=== PATIENT | male | born 1990 | race African-American/Black ===

== ENCOUNTER → 2018-02-24 | Outpatient (REF) | payer OTHER ==
[2018-02-25 08:06] LABS: HCG SERUM TUMOR MARKER QUANT < 1 mIU/mL (0-3)
[2018-02-25 13:22] LABS: ALPHA FETOPROTEIN TUMOR QUANT 2.8 NG/ML (<8.1)
== END ==
LOC: M LAB REF 13:11
DX: Z08 Encounter for follow-up examination after completed treatment for malignant neoplasm (principal); Z85.47 Personal history of malignant neoplasm of testis

== ENCOUNTER → 2018-02-25 | Outpatient (CLI) | payer OTHER | LOC: M RAD 13:59 | DX: Z85.47 Personal history of malignant neoplasm of testis (principal) | CPT/HCPCS: 71046 ==

== ENCOUNTER → 2019-01-30 | Outpatient (CLI) | payer OTHER ==
[~2019-01-30] MED LIST: GASTROGRAFIN SOLUTION 30ML (Q9963) As Ordered ONE; ISOVUE-370 76% 100ML VIAL (Q9967) As Ordered ONE; MULTCAP PO
--- NOTE | 2019-01-30 15:04 | REP ---
HISTORY: History of testicular carcinoma. COMPARISON: 02/25/2018 FINDINGS: The superior mediastinal structures are midline. The cardiac silhouette is unremarkable in size, shape and position. The diaphragmatic surfaces of the lungs are regular and the costophrenic angles are clear. The pulmonary franks are clear. The imaged osseous structures are intact. IMPRESSION: There is no acute cardiopulmonary disease. No change from the prior exam. COMMENT: If clinical suspicion is high due to the patient's diagnosis, then contrast CT is more sensitive. Electronically Signed by Mauricio Villatoro DO 01/30/2019 03:20 P
--- NOTE | 2019-01-30 17:14 | REP ---
HISTORY: Testicular carcinoma. COMPARISON: 02/14/2012 CONTRAST: 100 mL Isovue-370. The lung bases are clear and unchanged. The liver, gallbladder, spleen, pancreas, adrenal glands, and kidneys are unchanged and again seen to be within normal limits. The abdominal aorta and periaortic regions are unchanged and again seen to be within normal limits. The bowel loops and their mesenteries are unchanged. There is no free fluid or free air. There is no evidence of an intraabdominal mass or adenopathy. CT PELVIS: There is no mass or adenopathy. There is no free fluid or free air. The bowel loops and their mesenteries are within normal limits. Bone window technique throughout the exam shows the osseous structures to be within normal limits for the patient's age. IMPRESSION: CT findings are within normal limits. There has been no significant change compared to the prior exam. Electronically Signed by Mauricio Villatoro DO 02/02/2019 12:39 P
== END ==
LOC: M RAD 13:15
PROVIDERS: ATTEND Internal Medicine Medical Oncology
DX: C62.90 Malignant neoplasm of unspecified testis, unspecified whether descended or undescended (principal)
CPT/HCPCS: 71046; 74177; Q9963; Q9967

== ENCOUNTER → 2021-01-12 | Outpatient (CLI) | payer OTHER ==
[~2021-01-12] MED LIST changes: -ISOVUE-370 76% 100ML VIAL (Q9967) As Ordered ONE; +ISOVUE-370 76% 100ML VIAL As Ordered ONE; +MULT-90 PO
--- NOTE | 2021-01-12 16:40 | REP ---
INDICATION: TESTIS CA. Status post left or burr ectomy. COMPARISON: Comparison CT study is dated January 30, 2019.. TECHNIQUE: Helical scanning is acquired and 3 mm axial images re-formatted. Coronal and sagittal MPR images are generated. The CT contrast enhancement dose is 100 mL of intravenous Isovue 370. Oral contrast was also administered. A delayed post IV contrast acquisition is included. 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 The lung bases remain clear on axial CT images. There is no evidence of pleural effusion or upper abdominal ascites. The liver and the spleen are normal in size homogeneous in texture on pre postcontrast images. Normal adrenal glands are seen. No abnormality is noted in the gallbladder or the pancreas. The kidneys enhance symmetrically and are morphologically intact. No retroperitoneal mass or adenopathy is seen. No pelvic mass or adenopathy is noted. No inguinal adenopathy is seen. Seminal vesicles, prostate, and urinary bladder are unremarkable. No bony destructive lesion or abdominal wall defect is seen. There are however chronic sclerotic changes in the superior aspect of the femoral heads bilaterally which raise question of avascular necrosis. No flattening is seen. Correlation with MRI scanning of the hips could be performed. IMPRESSION: No mass or adenopathy seen. On bone windows, there is abnormal sclerosis in the femoral heads bilaterally raising suspicion of avascular necrosis. Consider bilateral hip MRI study. <Electronically signed by Jonathon Godinez > 01/12/21 [id number]
== END ==
LOC: M RAD 14:26
PROVIDERS: ATTEND Specialist
DX: C62.02 Malignant neoplasm of undescended left testis (principal); R93.5 Abnormal findings on diagnostic imaging of other abdominal regions, including retroperitoneum
CPT/HCPCS: 74177; Q9963; Q9967

== ENCOUNTER 2021-01-14 13:08 | Emergency (ER) | payer OTHER ==
[~2021-01-14] VITALS: Ht 177.8 cm; Wt 92.3 kg
[~2021-01-14 13:08] MED LIST changes: -GASTROGRAFIN SOLUTION 30ML (Q9963) As Ordered ONE; -ISOVUE-370 76% 100ML VIAL As Ordered ONE
--- NOTE | 2021-01-14 14:47 | REP ---
INDICATION: knee pain, s/p injury. COMPARISON: None. TECHNIQUE: Five views of the right knee including a sunrise view were obtained. FINDINGS: The joint spaces are normal. There is no evidence of acute fracture or dislocation. There is offset at the articular surface of the lateral tibial plateau which may indicate a prior injury. There is no knee joint effusion. The periarticular soft tissues are normal. IMPRESSION: 1. There are no joint space abnormalities or evidence of knee joint effusion. 2. Abnormal appearance of the medial tibial plateau, may indicate remote injury. <Electronically signed by Wilbur Guerin > 01/14/21 [id number]
--- NOTE | 2021-01-14 14:48 | REP ---
INDICATION: ankle pain, s/p injury. COMPARISON: None. TECHNIQUE: Four x-ray images of the right ankle were performed. FINDINGS: There is no evidence of fracture or dislocation. There are no significant joint space abnormalities. There are no heel spurs. The periarticular soft tissues are normal. IMPRESSION: Normal right ankle. <Electronically signed by Wilbur Guerin > 01/14/21 [id number]
[2021-01-14] MEDS ORDERED: KETOROLAC 30 MG/ML 1ML VIAL IV ONE (14:50)
[2021-01-14] MEDS ORDERED: NS 1,000 ML IV ONE (14:50)
[2021-01-14] MEDS ORDERED: CYCL-707 PO (16:16)
[2021-01-14 16:54] VITALS: BP 115/67
== END 2021-01-14 17:41 | disposition home or self-care (01) ==
LOC: EDBD 13:08 → M ED 13:08
DX: E86.0 Dehydration (principal); S93.401A Sprain of unspecified ligament of right ankle, initial encounter; S83.421A Sprain of lateral collateral ligament of right knee, initial encounter; X50.9XXA Other and unspecified overexertion or strenuous movements or postures, initial encounter; Y92.310 Basketball court as the place of occurrence of the external cause; Y93.67 Activity, basketball
CPT/HCPCS: 73564; 73610; 96361; 96374; 99284; J1885